=== PATIENT | male | born 1970 | race Two or more races ===

== ENCOUNTER 2016-03-11 19:37 | Emergency (ER) | payer BC ==
--- NOTE | 2016-03-11 20:38 | ER Document Report ---
Addendum entered and electronically signed by ELAINE STANTON NP 20:43: Doctor's Note Notes: 03/11/16 20:[address] Shaffer. He stated a CTA was warranted. Original Note: ED Medical Screen (RME) - General Chief Complaint: Chest Pain Stated Complaint: CHEST PAIN Time seen by provider: 20:36 Mode of Arrival: Ambulatory Information source: Patient Notes: 45-year-old man presents to ED for right-sided chest pain for the last couple days. He states pain is a very sharp. States he has had pain on both sides mild shortness of breath. States he thought it was cannot go away. States he had a DVT a year ago was on blood thinners for 6 months and is not on them now. States she has been fatigued. States he had not been able to get into the doctor due to his work. I have greeted and performed a rapid initial assessment of this patient. A comprehensive ED assessment and evaluation of the patient, analysis of test results and completion of medical decision making process will be conducted by an additional ED providers. - Related Data Allergies/Adverse Reactions: No Known Allergies Allergy (Unverified 09/12/11 13:22) Past Medical History GI Medical History: Reports: Hx Gastroesophageal Reflux Disease - Immunizations Hx Diphtheria, Pertussis, Tetanus Vaccination: Yes Physical Exam - Vital signs Vitals: Temp Pulse Resp BP Pulse Ox 98.2 F 99 17 126/86 H 95 03/11/16 20:19 03/11/16 20:19 03/11/16 20:19 03/11/16 20:19 03/11/16 20:19 Course - Vital Signs Vital signs: Temp Pulse Resp BP Pulse Ox 98.2 F 99 17 126/86 H 95 03/11/16 20:19 03/11/16 20:19 03/11/16 20:19 03/11/16 20:19 03/11/16 20:19
[2016-03-11] MEDS ORDERED: ASPIRIN 81 MG TABLET, CHEWABLE PO ONE (20:40)
[2016-03-11 21:09] LABS: ABSOLUTE BASOPHILS # (AUTO) 0.1 10^3/uL (0.0-0.2); ABSOLUTE EOSINOPHILS # (AUTO) 0.1 10^3/uL (0.0-0.6); ABSOLUTE LYMPHOCYTES (AUTO) 3.7 10^3/uL (0.5-4.7); ABSOLUTE MONOCYTES (AUTO) 0.9 10^3/uL (0.1-1.4); ABSOLUTE NEUT (AUTO) 7.2 10^3/uL (1.7-8.2); BASOPHILS % (AUTO) 0.7 % (0-2); EOSINOPHILS % (AUTO) 1.2 % (0-6); HEMATOCRIT 46.5 % (37.9-51.0); HEMOGLOBIN 15.5 g/dL (13.5-17.0); LYMPHOCYTES % (AUTO) 30.8 % (13-45); MEAN CORPUSCULAR HGB CONC 33.3 g/dL (32.0-36.0); MEAN CORPUSCULAR VOLUME 93 fl (80-97); MONOCYTES % (AUTO) 7.4 % (3-13); RED BLOOD COUNT 5.01 10^6/uL (4.35-5.55); RED CELL DISTRIBUTION WIDTH 12.6 % (11.5-14.0); SEGMENTED NEUTROPHILS % (AUTO) 59.9 % (42-78)
[2016-03-11 21:31] LABS: ALANINE AMINOTRANSFERASE 133 U/L (21-72); ALKALINE PHOSPHATASE 77 U/L (38-126); ANION GAP 14 (5-19); ASPARTATE AMINO TRANSFERASE 62 U/L (17-59); BILIRUBIN,TOTAL 0.7 mg/dL (0.2-1.3); BLOOD UREA NITROGEN 11 mg/dL (7-20); CALCIUM 10.3 mg/dL (8.4-10.2); CARBON DIOXIDE 29 mmol/L (22-30); CHLORIDE 99 mmol/L (98-107); CREATINE KINASE 273 U/L (55-170); CREATININE RESULT 0.91 mg/dL (0.52-1.25); GLUCOSE 135 mg/dL (75-110); LIPASE 85.1 U/L (23-300); POTASSIUM 4.3 mmol/L (3.6-5.0); SODIUM 141.7 mmol/L (137-145); TOTAL PROTEIN 8.4 g/dL (6.3-8.2)
[2016-03-11 21:49] LABS: CREATINE KINASE MB 1.47 ng/mL (<4.55)
[2016-03-11 21:54] LABS: TROPONIN I < 0.012 ng/mL
--- NOTE | 2016-03-11 22:00 | ER Document Report ---
ED General - General Chief Complaint: Chest Pain Stated Complaint: CHEST PAIN Mode of Arrival: Ambulatory Notes: Patient is a pleasant 45 -year-old male presents with complaint of sharp chest pain in the right lower portion of his chest. He says it's very intermittent sharp pain that only occurs when he takes a deep breath. Patient has a history of what he was told was a DVT one year ago. This was his left calf. Today's place on aspirin. He was not placed on any other blood thinners other than aspirin. 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 He denies previous history of PE. No other complaints this time. Patient has felt fatigued. TRAVEL OUTSIDE OF THE [place] IN LAST 30 DAYS: No - Related Data Allergies/Adverse Reactions: No Known Allergies Allergy (Unverified 09/12/11 13:22) Past Medical History - General Information source: Patient - Social History Smoking Status: Former Smoker Frequency of alcohol use: None Drug Abuse: None Family History: Reviewed & Not Pertinent Renal/ Medical History: Denies: Hx Peritoneal Dialysis GI Medical History: Reports: Hx Gastroesophageal Reflux Disease - Immunizations Hx Diphtheria, Pertussis, Tetanus Vaccination: Yes Review of Systems - Review of Systems Notes: My Normal Review Basic REVIEW OF SYSTEMS: CONSTITUTIONAL : Denies fever, chills, or sweats. Denies recent illness. EENT: Denies eye, ear, throat, or mouth pain or symptoms. Denies nasal or sinus congestion. CARDIOVASCULAR: Intermittent pleuritic chest pain RESPIRATORY: Denies cough, cold, or chest congestion. Denies shortness of breath, difficulty breathing, or wheezing. GASTROINTESTINAL: Denies abdominal pain. Denies nausea, vomiting, or diarrhea. Denies constipation. Last BM: MUSCULOSKELETAL: Denies neck or back pain or joint pain or swelling. SKIN: Denies rash or skin lesions. NEUROLOGICAL: Denies altered mental status or loss of consciousness. Denies headache. Denies weakness or paralysis or loss of use of either side. Denies problems with gait or speech. Denies sensory or motor loss. ALL OTHER SYSTEMS REVIEWED AND NEGATIVE. Physical Exam - Vital signs Vitals: Temp Pulse Resp BP Pulse Ox 98.2 F 99 17 126/86 H 95 03/11/16 20:19 03/11/16 20:19 03/11/16 20:19 03/11/16 20:19 03/11/16 20:19 - Notes Notes: General Appearance: Well nourished, alert, cooperative, no acute distress, no obvious discomfort. Well-appearing. Vitals: reviewed, See vital signs table. Head: no swelling or tenderness to the head Eyes: PERRL, EOMI, Conjuctiva clear Mouth: No decreasd moisture Neck: Supple, no neck tenderness, No thyromegaly Lungs: No wheezing, No rales, No rhonci, No accessory muscle use, good air exchange bilaterally. Heart: Normal rate, Regular rythm, No murmur, no rub Abdomen: Normal BS, soft, No rigidity, No abdominal tenderness, No guarding, no rebound, no abdominal masses, no organomegaly Extremities: strength 5/5 in all extremities, good pulses in all extremities, no swelling or tenderness in the extremities, no edema. Skin: warm, dry, appropriate color, no rash Neuro: speech clear, oriented x 3, normal affect, responds appropriately to questions. Course - Vital Signs Vital signs: Temp Pulse Resp BP Pulse Ox 97.2 F 77 20 129/95 H 98 03/12/16 01:30 03/12/16 01:30 03/12/16 01:30 03/12/16 01:30 03/12/16 01:30 - Laboratory Result Diagrams: 03/11/16 20:45 03/11/16 20:45 Laboratory results interpreted by me: 03/11/16 03/11/16 20:45 20:45 WBC 12.0 H Glucose 135 H Calcium 10.3 H AST 62 H ALT 133 H Creatine Kinase 273 H Total Protein 8.4 H - EKG Interpretation by Me Additional EKG results interpreted by me: 03/11/16 21:59 EKG is reviewed and interpreted by me. EKG shows normal sinus rhythm with rate of [address] segment elevation or depression. Patient has mild T-wave inversion which she's had on previous EKG from 09/12/2011. MD interval, QRS duration, Also Are within Normal Range. Patient Does Have a Q-Wave in Lead 3 of unknown significance. 03/11/16 23:49 EKG #2 is reviewed and interpreted by me. EKG shows sinus rhythm with rate of [address] segment elevation or depression. The small Q waves that were in lead 3 earlier are much less pronounced suggesting that this was lead placement issue. MD interval, QTC intervals are within normal range. QRS duration is slightly prolonged. - Transfer of Care Notes: 03/12/16 06:40 CT angios obtain because of the patient's history of previous DVT and him having cardiac chest pain. CT was negative. Pain does not seem consistent with cardiac and that is very pruritic and not constant. EKG was normal. Cardiac enzymes are negative. Will have the patient follow-up with his primary care doctor for close reevaluation. Encouraged to return to ER immediately if he has constant chest pain, change in location or character of the chest pain, or fever worsens. I did perform a side ultrasound of his left lower extremity. He had a fully collapsible proximal left femoral vein with good augmentation of flow with calf squeeze. I informed him that this means is unlikely he has a large DVT of the leg; however, I still felt appropriate for him to have a official ultrasound done. I've written an order for him to have this done outpatient with being that we do not have this availability at night. Patient agrees with plan will be discharged home. Dictation of this chart was performed using voice recognition software; therefore, there may be some unintended grammatical errors. Discharge - Discharge Clinical Impression: Chest pain Qualifiers: Chest pain type: unspecified Qualified Code(s): R07.9 - Chest pain, unspecified Condition: Good Disposition: HOME, SELF-CARE Additional Instructions: CHEST PAIN OF UNCLEAR CAUSE: The exact cause of your chest pain isn't clear. Fortunately, there is no evidence of a dangerous medical condition. Further testing may be required to find the source of the pain. Most often, we find that this pain is coming from the chest wall -- the muscles or rib joints in the chest. But chest pain can come from the lung and lung lining, the esophagus, the heart valves or heart lining, and even the stomach or gallbladder. Rest. Eat lightly until the pain is gone. We may prescribe medicine for pain and inflammation. You should call the physician immediately if the pain radiates to the shoulder, jaw or arms; if you start to run a fever or develop a cough; or if you develop shortness of breath, or other new or alarming symptoms. NORMAL EXAM AND WORKUP: At this time, your examination and workup show no significant abnormality. No significant abnormal physical findings were noted. All laboratory, EKG, and imaging (CT scans, ) studies that were ordered show no significant abnormality. Although your examination and all studies that were ordered showed no significant abnormal finding, there are no examinations and no studies that are 100% accurate. There is always the possibility that some abnormality could exist and not be detected with physical examination or within the limits and capabilities of laboratory and other studies. You should return or follow up as you were instructed on your visit today for further evaluation if your symptoms do not resolve. FOLLOW-UP CARE: If you have been referred to a physician for follow-up care, call the physician s office for an appointment as you were instructed or within the next two days. If you experience worsening or a significant change in your symptoms, notify the physician immediately or return to the Emergency Department at any time for re-evaluation. You should continue to take 81 mg of aspirin a day. Today your cardiac enzymes show no evidence of a impending heart attack. It si still important to follow closely with your doctor and be reevaluated for chest pain. He may arrange for an outpatient stress test just to further evaluate you. CT scan showed no evidence of clot in your lungs. I've written a order form for a outpatient ultrasound of your leg to look for any further evidence of a DVT. Please return to ER immediately if your pain becomes constant, your pain changes location, you become short of breath, you have vomiting, or have fevers. Forms: Follow-Up Radiology Testing, Return to Work Referrals: NICOLE CRANE MD [Primary Care Provider] - Follow up in 3-5 days
[2016-03-11] MEDS ORDERED: NORMAL SALINE 1000 ML 1,000 ML IV ONE (22:07)
[2016-03-11 22:32] LABS: APPEARANCE,URINE CLEAR; BILIRUBIN,URINE NEGATIVE (NEGATIVE); GLUCOSE, URINE NEGATIVE (NEGATIVE); KETONES,URINE NEGATIVE (NEGATIVE); LEUKOCYTE ESTERASE,URINE NEGATIVE (NEGATIVE); NITRITE,URINE NEGATIVE (NEGATIVE); PROTEIN,URINE NEGATIVE (NEGATIVE); UROBILINOGEN,URINE NEGATIVE mg/dL (<2.0)
[2016-03-12 03:54] VITALS: BP 129/95
--- NOTE | 2016-03-12 14:56 | EKG REPORT ---
SEVERITY:- NORMAL ECG - SINUS RHYTHM : Confirmed by: Regina Lilly MD 12-Mar-2016 14:55:50
--- NOTE | 2016-03-12 14:56 | EKG REPORT ---
SEVERITY:- ABNORMAL ECG - SINUS RHYTHM INCOMPLETE RIGHT BUNDLE BRANCH BLOCK : Confirmed by: Regina Lilly MD 12-Mar-2016 14:55:31
== END 2016-03-12 01:36 | disposition home or self-care (01) ==
LOC: ER 19:37
DX: R07.9 Chest pain, unspecified (principal); Z87.891 Personal history of nicotine dependence
CPT/HCPCS: 93005; 99285; 96360; 36415; 82553; 82550; 83690; 85025; 80053; 81001; 84484; 71275; 93010; J7030